=== PATIENT | female | born 1965 | race Hispanic/Latino ===

== ENCOUNTER 2019-01-09 01:09 | Emergency (ER) | payer OTHER ==
[2019-01-09] MEDS ORDERED: KETOROLAC 30 MG/ML INJ ONE (02:09)
[2019-01-09] MEDS ORDERED: PANTOPRAZOLE 40 MG INJ ONE (02:09)
[2019-01-09] MEDS ORDERED: DIPHENHYDRAMINE 50 MG/ML VIAL ONE (02:09)
[2019-01-09] MEDS ORDERED: ONDANSETRON 4 MG/2 ML VIAL ONE (02:09)
[2019-01-09] MEDS ORDERED: NA CHLORIDE 0.9% 1,000 ML ONE (02:10)
[2019-01-09 02:53] LABS: Absolute Lymphocytes (CBC) 1.2 K/uL (0.7-4.9); Absolute Monocytes 0.5 K/uL (0.1-1.3); Absolute Neutrophil 2.6 K/uL (1.8-8.0); Basophils % 0.4 % (0-1.3); Eosinophils % 4.7 % (0-4.4); Hematocrit 42.3 % (36.0-45.0); Lymphocytes % 26.7 % (15.3-44.8); MPV 8.7 fL (7.6-11.3); Monocytes % 11.1 % (3.3-12.3); RBC Red Blood Cell Count 5.13 M/uL (3.86-4.86)
[2019-01-09 03:03] LABS: ALT/SGPT 40 U/L (12-78); AST/SGOT 28 U/L (15-37); Albumin 3.5 g/dL (3.4-5.0); Alkaline Phosphatase 118 U/L (45-117); BUN Blood Urea Nitrogen 5 mg/dL (7-18); Bicarbonate 25 mmol/L (21-32); Bilirubin Direct < 0.1 mg/dL (0-0.2); Bilirubin Total 0.4 mg/dL (0.2-1.0); Glucose Level 86 mg/dL (74-106); Lipase 54 U/L (73-393); Potassium 3.5 mmol/L (3.5-5.1); Protein, Total 7.1 g/dL (6.4-8.2); Sodium Level 137 mmol/L (136-145)
--- NOTE | 2019-01-09 04:51 | ER ---
Nurse's Notes [facility] Name: Tamera Ware Age: 53 yrs Sex: Female : 1965 Arrival Date: 01/09/2019 Time: 01:13 Bed 6 Private MD: Miguel Beckwith Diagnosis: Vomiting, unspecified;Diarrhea, unspecified;Migraine without aura;Migraine without aura, intractable;Dehydration Presentation: 01/09 01:35 Presenting complaint: Patient states: lower back pain, nausea, diarrhea and migraine tl2 and fever since . Denies vomiting. Transition of care: patient was not received from another setting of care. Onset of symptoms was January 04, 2019. Risk Assessment: Do you want to hurt yourself or someone else? Patient reports no desire to harm self or others. Initial Sepsis Screen: Does the patient meet any 2 criteria? No. Patient's initial sepsis screen is negative. Does the patient have a suspected source of infection? No. Patient's initial sepsis screen is negative. Care prior to arrival: None. 01:35 Method Of Arrival: Ambulatory tl2 01:35 Acuity: PERCY 3 tl2 Triage Assessment: 01:39 General: Appears in no apparent distress. uncomfortable, Behavior is calm, cooperative, tl2 appropriate for age. Pain: Complains of pain in lumbar area. Neuro: Level of Consciousness is awake, alert, obeys commands, Oriented to person, place, time, situation. Cardiovascular: Denies chest pain. Respiratory: Airway is patent Respiratory effort is even, unlabored, Respiratory pattern is regular, symmetrical. GI: Reports diarrhea, intolerance of fluids, intolerance of food, nausea, Patient currently denies abdominal pain, vomiting. : No signs and/or symptoms were reported regarding the genitourinary system. Derm: Skin is pink, warm \T\ dry. 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 - Social history:: Smoking status: Patient/guardian denies using tobacco. - Ebola Screening: : No symptoms or risks identified at this time. Screenin:41 Abuse screen: Denies threats or abuse. Nutritional screening: No deficits noted. tl2 Tuberculosis screening: No symptoms or risk factors identified. Fall Risk None identified. Assessment: 01:39 General: see triage assessment. tl2 02:20 Reassessment: Patient appears in no apparent distress at this time. Patient and/or tl2 family updated on plan of care and expected duration. Pain level reassessed. Patient is alert, oriented x 3, equal unlabored respirations, skin warm/dry/pink. 03:31 Reassessment: Patient appears in no apparent distress at this time. Patient and/or tl2 family updated on plan of care and expected duration. Pain level reassessed. Patient is alert, oriented x 3, equal unlabored respirations, skin warm/dry/pink. Patient states feeling better. 04:59 Reassessment: Patient and/or family updated on plan of care and expected duration. Pain ea level reassessed. Patient is alert, oriented x 3, equal unlabored respirations, skin warm/dry/pink. Discharge instruction given to patient, verbalized the understanding of instruction. Denies pain at this time. Pt left ED ambulatory, tolerating well. Patient states feeling better. Vital Signs: 01:39 BP 173 / 117; Pulse 85; Resp 18; Temp 98.4(O); Pulse Ox 100% on R/A; Weight 79.38 kg; tl2 Height 5 ft. 4 in. (162.56 cm); Pain 3/10; 02:43 BP 171 / 102; Pulse 78; Resp 18; Pulse Ox 100% on R/A; tl2 03:30 BP 164 / 96; Pulse 80; Resp 16; Pulse Ox 100% on R/A; Pain 4/10; tl2 04:47 BP 148 / 94; Pulse 80; Resp 18; Pulse Ox 100% on R/A; tl2 01:39 Body Mass Index 30.04 (79.38 kg, 162.56 cm) tl2 ED Course: 01:13 Patient arrived in ED. es 01:14 Miguel Beckwith MD is Private Physician. es 01:21 Inder Horner MD is Attending Physician. tw4 01:36 Triage completed. tl2 01:39 Arm band placed on right wrist. tl2 01:41 Patient has correct armband on for positive identification. Placed in gown. Bed in low tl2 position. Call light in reach. Side rails up X2. 02:42 Amparo Rubio, RN is Primary Nurse. ea 04:50 Miguel Beckwith MD is Referral Physician. tw4 05:04 No provider procedures requiring assistance completed. IV discontinued, intact, ea bleeding controlled, No redness/swelling at site. Pressure dressing applied. Administered Medications: 02:17 Drug: NS 0.9% 1000 ml Route: IV; Rate: 1 bolus; Site: right antecubital; tl2 05:06 Follow up: Response: No adverse reaction; IV Status: Completed infusion; IV Intake: ea 1000ml 02:17 Drug: Zofran 4 mg Route: IVP; Site: right antecubital; tl2 03:00 Follow up: Response: No adverse reaction; Marked relief of symptoms ea 02:18 Drug: TORadol 30 mg Route: IVP; Site: right antecubital; tl2 03:00 Follow up: Response: No adverse reaction; Pain is decreased ea 02:19 Drug: ProTONIX 40 mg Route: IVP; Site: right antecubital; tl2 03:00 Follow up: Response: No adverse reaction; Marked relief of symptoms ea 02:19 Drug: Benadryl 25 mg Route: IVP; Site: right antecubital; tl2 03:00 Follow up: Response: No adverse reaction ea Intake: 05:06 IV: 1000ml; Total: 1000ml. ea Outcome: 04:50 Discharge ordered by . tw4 05:04 Discharged to home ambulatory. ea 05:04 Condition: improved 05:04 Discharge instructions given to patient, Instructed on discharge instructions, follow up and referral plans. medication usage, Demonstrated understanding of instructions, follow-up care, medications, Prescriptions given X 2. 05:06 Patient left the ED. ea Signatures: Paloma Gaxiola Taylor, RN RN tl2 Amparo Rubio, Inder Larsen RN, ea, MD MD tw4
--- NOTE | 2019-01-09 04:51 | EDPHYS ---
Physician Documentation [facility] Name: Tamera Ware Age: 53 yrs Sex: Female : 1965 Arrival Date: 01/09/2019 Time: 01:13 Bed 6 Private MD: Miguel Beckwith ED Physician Inder Horner HPI: 01/09 03:10 This 53 yrs old Female presents to ER via Ambulatory with complaints of Fever, tw4 Decreased Appetite, Nausea, Diarrhea, Headache, Heart burn. 03:10 The patient presents to the emergency department with. Onset: The symptoms/episode tw4 began/occurred 1 week(s) ago. Possible causes: unknown. The symptoms are aggravated by nothing. The symptoms are alleviated by nothing. Associated signs and symptoms: Pertinent positives: HEADACHE. Severity of symptoms: At their worst the symptoms were moderate in the emergency department the symptoms have improved. The patient has not experienced similar symptoms in the past. 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 - Social history:: Smoking status: Patient/guardian denies using tobacco. - Ebola Screening: : No symptoms or risks identified at this time. ROS: 03:10 Constitutional: Negative for fever, chills, and weight loss, Eyes: Negative for injury, tw4 pain, redness, and discharge, Respiratory: Negative for shortness of breath, cough, wheezing, and pleuritic chest pain. 03:10 MS/Extremity: Negative for injury and deformity, Skin: Negative for injury, rash, and discoloration. 03:10 Abdomen/GI: Positive for nausea and vomiting, nausea, vomiting, and diarrhea, nausea, vomiting, diarrhea, Negative for abdominal pain, abdominal cramps, abdominal distension. 03:10 Neuro: Positive for headache, Negative for altered mental status, dizziness, gait disturbance, seizure activity, speech changes, syncope, near syncope, tingling, tinnitus, tremor, visual changes. Exam: 03:10 Constitutional: This is a well developed, well nourished patient who is awake, alert, tw4 and in no acute distress. Head/Face: Normocephalic, atraumatic. Eyes: Pupils equal round and reactive to light, extra-ocular motions intact. Lids and lashes normal. Conjunctiva and sclera are non-icteric and not injected. Cornea within normal limits. Periorbital areas with no swelling, redness, or edema. Cardiovascular: Regular rate and rhythm with a normal S1 and S2. No gallops, murmurs, or rubs. Normal PMI, no JVD. No pulse deficits. Respiratory: Lungs have equal breath sounds bilaterally, clear to auscultation and percussion. No rales, rhonchi or wheezes noted. No increased work of breathing, no retractions or nasal flaring. Abdomen/GI: Soft, non-tender, with normal bowel sounds. No distension or tympany. No guarding or rebound. No evidence of tenderness throughout. Back: No spinal tenderness. No costovertebral tenderness. Full range of motion. MS/ Extremity: Pulses equal, no cyanosis. Neurovascular intact. Full, normal range of motion. Neuro: Awake and alert, GCS 15, oriented to person, place, time, and situation. Cranial nerves II-XII grossly intact. Motor strength 5/5 in all extremities. Sensory grossly intact. Cerebellar exam normal. Normal gait. Vital Signs: 01:39 BP 173 / 117; Pulse 85; Resp 18; Temp 98.4(O); Pulse Ox 100% on R/A; Weight 79.38 kg; tl2 Height 5 ft. 4 in. (162.56 cm); Pain 3/10; 02:43 BP 171 / 102; Pulse 78; Resp 18; Pulse Ox 100% on R/A; tl2 03:30 BP 164 / 96; Pulse 80; Resp 16; Pulse Ox 100% on R/A; Pain 4/10; tl2 04:47 BP 148 / 94; Pulse 80; Resp 18; Pulse Ox 100% on R/A; tl2 01:39 Body Mass Index 30.04 (79.38 kg, 162.56 cm) tl2 MDM: 01:21 Patient medically screened. tw4 03:10 Differential diagnosis: Nonspecific abd pain, gastritis. Data reviewed: vital signs, tw4 nurses notes. Data interpreted: Pulse oximetry: Interpretation: normal. Counseling: I had a detailed discussion with the patient and/or guardian regarding: the historical points, exam findings, and any diagnostic results supporting the discharge/admit diagnosis. Medication response: Toradol markedly relieved the patient's pain. 01/09 01:36 Order name: Basic Metabolic Panel; Complete Time: 04:51 01/09 04:52 Interpretation: Normal except: GFR 75; BUN 5; CL 108. 01/09 01:36 Order name: CBC with Diff; Complete Time: 04:52 01/09 04:52 Interpretation: Normal except: RBC 5.13; RDW 15.3. 01/09 01:36 Order name: Creatinine for Radiology; Complete Time: 04:52 01/09 01:36 Order name: Hepatic Function 01/09 01:36 Order name: Lipase; Complete Time: 04:52 01/09 04:52 Interpretation: Normal except: LIP 54. 01/09 01:36 Order name: IV Saline Lock; Complete Time: 02:16 01/09 01:36 Order name: Labs collected and sent; Complete Time: 02:16 4 Administered Medications: 02:17 Drug: NS 0.9% 1000 ml Route: IV; Rate: 1 bolus; Site: right antecubital; tl2 05:06 Follow up: Response: No adverse reaction; IV Status: Completed infusion; IV Intake: ea 1000ml 02:17 Drug: Zofran 4 mg Route: IVP; Site: right antecubital; tl2 03:00 Follow up: Response: No adverse reaction; Marked relief of symptoms ea 02:18 Drug: TORadol 30 mg Route: IVP; Site: right antecubital; tl2 03:00 Follow up: Response: No adverse reaction; Pain is decreased ea 02:19 Drug: ProTONIX 40 mg Route: IVP; Site: right antecubital; tl2 03:00 Follow up: Response: No adverse reaction; Marked relief of symptoms ea 02:19 Drug: Benadryl 25 mg Route: IVP; Site: right antecubital; tl2 03:00 Follow up: Response: No adverse reaction ea Disposition: 01/09/19 04:50 Discharged to Home. Impression: Vomiting, unspecified, Diarrhea, unspecified, Migraine without aura, Migraine without aura, intractable, Dehydration. - Condition is Stable. - Discharge Instructions: Dehydration, Adult, Diarrhea, Adult, Migraine Headache, Nausea and Vomiting, Adult. - Prescriptions for Fiorinal 50- 325-40 mg Oral Capsule - take 1 capsule by ORAL route every 4 hours As needed - not to exceed 6 capsules per day; 20 capsule. Zofran 4 mg Oral Tablet - take 1 tablet by ORAL route every 12 hours As needed; 6 tablet. - Medication Reconciliation Form, Thank You Letter, Antibiotic Education, Prescription Opioid Use form. - Follow up: Miguel Beckwith MD; When: Upon discharge from the Emergency Department; Reason: If symptoms return, Recheck today's complaints, Continuance of care. - Problem is new. - Symptoms have improved. Signatures: Dispatcher [employer] EDMS Mikayla Anaya RN RN tl2 Amparo Rubio RN RN Inder Giang MD MD tw4 Corrections: (The following items were deleted from the chart) 05:06 04:50 01/09/2019 04:50 Discharged to Home. Impression: Vomiting, unspecified; Diarrhea, ea unspecified; Migraine without aura; Migraine without aura, intractable; Dehydration. Condition is Stable. Forms are Medication Reconciliation Form, Thank You Letter, Antibiotic Education, Prescription Opioid Use. Follow up: Miguel Beckwith; When: Upon discharge from the Emergency Department; Reason: If symptoms return, Recheck today's complaints, Continuance of care. Problem is new. Symptoms have improved. tw4
== END 2019-01-09 05:06 | disposition home or self-care (01) ==
LOC: ER 01:09
DX: G43.019 Migraine without aura, intractable, without status migrainosus (principal); E86.0 Dehydration; R19.7 Diarrhea, unspecified; F32.9 Major depressive disorder, single episode, unspecified; F41.9 Anxiety disorder, unspecified; I10 Essential (primary) hypertension; Z88.5 Allergy status to narcotic agent
CPT/HCPCS: 36415; 80048; 80076; 83690; 85025; 96361; 96374; 96375; 99283; C9113; J2405; J7030